=== PATIENT | male | born 1940 | race Caucasian/White ===

== ENCOUNTER 2017-06-06 18:00 | Inpatient (IN) | payer MEDICARE ==
[~2017-06-06] VITALS: Ht 193 cm; Wt 143.3 kg
--- NOTE | ~2017-06-06 | CON ---
PATIENT'S NAME: CARLA LIN [facility] AGE: 76 Y [address] ROOM: [place] [address] [place] [facility] [place] DATE: 06/06/2017 Consultation DISCHARGE DATE: FAMILY PHYSICIAN: Elias Pierce MD ATTENDING PHYSICIAN: MARE SMITH DATE OF CONSULTATION: 06/07/2017 REFERRING PHYSICIAN: Mare Smith MD REASON FOR CONSULT: Lower leg dermatitis. HISTORY OF PRESENT ILLNESS: This is a 76-year-old male patient who was admitted to [facility] with hypoxemia. He has a history of type 2 diabetes mellitus, hypertension, obstructive sleep apnea, COPD, lower leg edema, and diastolic CHF. His current hemoglobin A1c is 9.7%. The patient is a poor historian. Per previous records, the patient has been complaining of epigastric pain associated with diarrhea. In addition, he has suffered from a productive cough with white phlegm. He notes his legs have been swollen for "years." He does wear some type of wraps at home, but currently is not wearing, unable to describe them to me. He does not wear diabetic footwear. He denies lower leg pain. He does not think he has worn Unna boot applications in the past. He denies pain. He admits to shortness of breath. Unable to obtain any other history from the patient. PAST MEDICAL HISTORY: Hypothyroidism, chronic diastolic congestive heart failure, type 2 diabetes mellitus, obstructive sleep apnea, hypertension, adrenal insufficiency, lower leg edema, and BPH. PAST SURGICAL HISTORY: Cholecystectomy, appendectomy, excision of pituitary tumor, cataract surgery, pacemaker placement, right total knee surgery, and pituitary tumor removal. FAMILY MEDICAL HISTORY: Positive for diabetes. SOCIAL HISTORY: The patient lives in [place]. He quit smoking in 1982. He denies alcohol use. ALLERGIES: LATEX AND BANANAS. PATIENT'S NAME: CARLA LIN [facility] AGE: 76 Y [address] ROOM: [place] [address] LOCATION: [facility] [place] ADMIT DATE: 06/06/2017 Consultation DISCHARGE DATE: FAMILY PHYSICIAN: Elias Pierce MD ATTENDING PHYSICIAN: MARE SMITH CURRENT MEDICATIONS: Please refer to the medication administration record. REVIEW OF SYSTEMS: Unable to fully complete. The patient is a very poor historian. He does deny pain. Please see HPI for further details. PHYSICAL EXAMINATION: VITAL SIGNS: Temperature 98.0, pulse 62, respirations 17, blood pressure 147/85, and pulse oximetry 95% on 6 L. Height 6 feet 4 inches and weight 148.6 kg. GENERAL: The patient is alert. He knows he is in [place]. Obviously, short of breath. Obese in nature. HEENT: Head is normocephalic and atraumatic. Very hard of hearing. Oral mucosa dry. NECK: Supple. CARDIOVASCULAR: Deferred. ABDOMEN: Obese, round, and soft. EXTREMITIES: Doppled pedal pulses. +2 pitting edema. Thick mycotic toenails, unable to assess capillary refill. Significant dark hemosiderin staining to lower legs. Heels intact. Extremities are warm to touch. No hair growth noted. SKIN: Significant venous dermatitis and hemosiderin staining with skin flaking to lower legs. Right anterior lower extremity dry scab measures 3.0 cm width x 1.5 cm length. Groin folds red, left worse than right. Satellite lesions noted. The patient refused buttocks visualization. Nursing noted no issues. LABORATORY DATA: Please refer to the patient's chart. ASSESSMENT AND PLAN: Again, this is a 76-year-old male patient who was admitted to [facility] with hypoxia. Wound care consult for lower leg dermatitis. 1. Bilateral lower leg edema secondary to venous insufficiency and diastolic congestive heart failure. Dry scabbing to right anterior lower extremity. The patient is a very poor historian. No family at bedside. No weeping lesions noted. He reports he wears some type of wraps at home. It will be a priority to rule out arterial disease prior to Unna boot applications. This may need to be done on an outpatient basis. For now, we will treat the dermatitis with emollient therapy. I instructed Nursing to apply Aloe [place] b.i.d. to lower legs. Then, Tod wraps will be applied for light compression, on in the morning and off at bedtime. His legs are to be elevated at all times with pillows. He does not seem to understand ankle calf pump muscle exercises. I would be happy to PATIENT'S NAME: CARLA LIN [facility] AGE: 76 Y [address] ROOM: [address] [address] LOCATION: [facility] [place] DATE: 06/06/2017 Consultation DISCHARGE DATE: FAMILY PHYSICIAN: Elias Pierce MD ATTENDING PHYSICIAN: MARE SMITH follow this patient outpatient if needed. 2. Candidiasis groin rash. We will treat with nystatin ointment t.i.d. x10 days. I instructed Nursing to perform meticulous skin care. 3. Pressure ulcer prevention. Nursing is instructed to turn the patient in bed q.2 hours side to side. I would like to thank Dr. Smith for this consult. FARRAH ARSHAD APRN FOR MD LISA ENRIQUE/sbl /[id number] d: 06/09/17 1457 t: 06/15/17 1120, CONSULTATION REPORT
--- NOTE | ~2017-06-06 | OR ---
PATIENT'S NAME: CARLA LIN [facility] AGE: 76 Y [address] ROOM: [place] [address] LOCATION: [facility] [place] ADMIT DATE: 06/06/2017 OR/Procedure Report DISCHARGE DATE: 06/13/2017 FAMILY PHYSICIAN: Elias Pierce MD ATTENDING PHYSICIAN: Sonal Israel SURGEON: Ranjith Bang MD BELLMAN DRIVER: DATE OF PROCEDURE: 06/12/2017 ADDENDUM: The patient did undergo biopsy of a small antral polyp as well as a small transverse colon polyp was removed per cold biopsy forceps. RANJITH BANG MD AM/moddaniela /[id number] d: 07/01/17 2139 t: 07/03/17 0756, OPERATIVE SUMMARY
--- NOTE | ~2017-06-06 | DS ---
PATIENT'S NAME: CARLA LIN [facility] AGE: 76 Y [address] ROOM: [address] [address] LOCATION: [facility] [place] ADMIT DATE: 06/06/2017 Discharge Summary DISCHARGE DATE: 06/13/2017 FAMILY PHYSICIAN: Elias Pierce MD ATTENDING PHYSICIAN: Dudley Ragland FINAL DIAGNOSES: 1. Acute hypoxic respiratory failure. 2. Acute on chronic anemia. 3. Acute encephalopathy. 4. Diastolic congestive heart failure. 5. Venous insufficiency. 6. Essential hypertension. 7. Diabetes mellitus type 2. 8. Acute kidney injury secondary to rhabdomyolysis. 9. Transaminitis. PROCEDURES: EGD and colonoscopy with Dr. Scott. HOSPITAL COURSE: Please see details of admission H and P by Dr. Ragland. Briefly, the patient was admitted secondary to his profound anemia and weakness and encephalopathy. During his workup, he was found to have acute kidney injury secondary to rhabdomyolysis. The patient was aggressively hydrated. He was started on antibiotics with Zosyn and Zyvox to preemptively treat any infections Wound Care was consulted for skin evaluation secondary to an ulceration on the skin. The patient was worked up for sepsis, but not found to be septic by criteria. The patient's blood sugars were covered with sliding scale insulin and mild NovoLog scale. The patient was found to have elevated liver enzymes and many level was added. He was placed on heparin subcutaneous for DVT prophylaxis. I did place a Alvarez on the for accurate I's and O's. Wound evaluated the patient on the and felt that his lower extremity edema was secondary to venous insufficiency. The patient did have some intertrigo rash which was treated with nystatin. The patient had elevated blood glucose. He was started on carb count with meals. Echo was performed on the showed EF at 50% with normal wall motion. Insignificant valvular regurgitation noted. Venous Doppler was performed. Did not show any evidence of DVT or thrombophlebitis. We did heme test stools secondary to his anemia and he was heme positive. His encephalopathy did clear throughout his stay. We worked him aggressively with physical and occupational therapy and strength did significantly improve. On the , we did get a spiral CT scan for his hypoxic respiratory failure. The patient did have a history of adrenal insufficiency and he was started back on his Cortef on the with loading doses of Solu-Cortef. CT with PE protocol was negative. Did show chronic pulmonary hypertension and possible bronchitis. The patient was transferred out of the ICU on the . Further medication PATIENT'S NAME: CARLA LIN [facility] AGE: 76 Y [address] ROOM: [place] [address] LOCATION: [facility] [place] ADMIT DATE: 06/06/2017 Discharge Summary DISCHARGE DATE: 06/13/2017 FAMILY PHYSICIAN: Elias Pierce MD ATTENDING PHYSICIAN: Dudley Ragland optimization occurred with blood pressure adjustment and diabetic med adjustment. We stopped his Zosyn and Zyvox and placed him on Ceftin. GI was consulted on the for his anemia with heme-positive stools. Recommended that he undergo EGD and colonoscopy for further evaluation. EGD and colonoscopy were essentially insignificant. He did have some antral gastritis which could be suspect for blood loss, but no active bleeding was noted. On the , the patient was feeling significantly better and felt that he could safely go home and continue with his current level of care including in-home caregivers and support from his daughter. The patient was discharged in stable condition on 06/13/2017. DIAGNOSTICS: CT scan with PE protocol, was already mentioned. Head CT without contrast shows no evidence of intracranial abnormality. CT scan of the abdomen and pelvis shows irregular liver borders suggesting cirrhosis, spleen enlargement, and dependent atelectasis in the lung bases. Chest x-ray shows no vascular congestion or acute infiltrate. Pacemaker present. LABORATORY DATA: Blood glucose ranged between 92 and 377. ABG on the had a pH of 7.32, pCO2 50, PO2 of 35, HCO3 25.8, CO2 content was 29 base excess -0.9. Saturation was 60% on 6 L. Lactate was 1.1 on the . On admission, sodium was 134, potassium 3.6, chloride 100, bicarb 25, glucose 218, BUN 28, creatinine 1.9, lipase 84, CPK 1383, CK-MB 17.1, troponin less than 0.04, free T4 was 0.8, proBNP was 1872. Sodium trended up to 139 on the day of discharge, potassium was 4.1. Iron was 34, TIBC was 356, percent saturation was 10. CPK trended down to 337. Hemoglobin A1C was 9.7. Ferritin was 79.8, free T4 was 0.8, TSH was 0.898. On admission, white blood cell count was 3.7, hemoglobin 10.3, hematocrit 32.1, platelets 72. Prior to discharge, white blood cell count 4.9, hemoglobin 11, hematocrit 34.2, platelets 93. Myoglobin of the urine was 11. Urine creatinine was 159. Urine urea was 521, random urine sodium was 47. Occult stool was positive x3 samples. Blood cultures were negative x4 samples. DISCHARGE INSTRUCTIONS: The patient is discharged home. He is to follow up with Dr. Pierce in 1 week on 06/25/2017 at 2:30. He will follow up with Dr. Scott in 2 months on 08/12/2017 for EGD. The patient will resume home health through the [facility]. They are to monitor his blood pressure and report them to Dr. Pierce. DIET: Diabetic. ACTIVITY: As tolerated. DISCHARGE MEDICATIONS: 1. Allopurinol 300 mg daily. 2. Aspirin 81 mg daily. PATIENT'S NAME: CARLA LIN [facility] AGE: 76 Y [address] ROOM: [place] [address] LOCATION: [facility] [place] ADMIT DATE: 06/06/2017 Discharge Summary DISCHARGE DATE: 06/13/2017 FAMILY PHYSICIAN: Elias Pierce MD ATTENDING PHYSICIAN: Dudley Ragland 3. Lipitor 40 mg daily. 4. Buspirone 15 mg twice daily. 5. Ceftin 250 mg twice daily with stop date of 06/14/2017. 6. Vitamin D 2000 units daily. 7. Lantus 34 units at bedtime. 8. Glucagon pen as directed. 9. Levothyroxine 200 mcg daily. 10. Lisinopril 40 mg daily. 11. Claritin 10 mg daily. 12. Lopressor 25 mg twice daily. 13. Nystatin ointment applied topically 3 times daily, stop date of 06/16/2017. 14. Protonix 40 mg daily. 15. Florastor 250 mg twice daily. 16. Zoloft 100 mg daily. 17. Spironolactone 12.5 mg daily. 18. Flomax 0.4 mg daily. 19. Tylenol 650 mg every 6 hours as needed. 20. Proventil 2 puffs every 4 hours as needed. 21. Calcium plus D 500 mg twice daily. 22. CPAP as directed. 23. Fish oil 2000 mg daily. 24. Glucose tabs as directed. 25. Hydrocortisone 10 mg at bedtime. 26. Hydrocortisone 15 mg every morning. 27. Metformin 2000 mg daily. We appreciate participating in this patient's care. Thank you very much for the ability to serve him while hospitalized at [facility]. Time spent coordinating details of discharge was 35 minutes of which was spent coordinating with consulting physicians, care management, completion of medication reconciliation, and education to the patient and family on the above-mentioned diagnoses. FELIPE CURIEL FOR FAUSTINO MAYEN MD OLIVE/modl /[id number] d: 06/14/17 1538 t: 07/01/17 1442, DISCHARGE SUMMARY
--- NOTE | ~2017-06-06 | ECHO ---
Transthoracic Echocardiography Report (TTE) Demographics Patient Name CARLA LIN Date of Study 06/07/2017 Patient Number [id number] Visit Number [id number] Date of 1940 Room Number [id number] Accession Number [id number] Gender Male Age 76 year(s) Referring Jhonatan Flores C.O.D. Biller Selwyn Carter RVT Physician MD Kari Rueda MD Physician Interpreting Naomi Bryant Product Architect Physician Supervising Ordering Physician Jhonatan Flores MD, MD/MLP Nurse Stress Merchandise Coordinator Conclusions Contractility Score Summary Normal Left Ventricular contractility was noted. Summary Technically difficult exam. The estimated left ventricular ejection fraction is 50% with normal WM and internal dimension. Moderate concentric left ventricular hypertrophy. Mild biatrial dilatation. Mild mitral annular calcification. Trivial mitral regurgitation by color Doppler. Trivial tricuspid regurgitation by color Doppler. Procedure Type of Study TTE procedure:2D Echocardiogram. Procedure Date Date: 06/07/2017 Start: 02:49 PM Study Location: Inpatient Portable Technical Quality: Adequate visualization Indications:Chest pain. Appropriate Use Criteria: 9 Patient Status: Routine HR: 63 bpm M-Mode/2D Measurements LV Diastolic Dimension: 5.61 cm LV Systolic Dimension: 4.17 cm LV Septum Diastolic: 1.62 cm LV PW Diastolic: 1.83 cm AO Root Dimension: 3.1 cm Cardiac Output: 5.68 l/min LA Dimension: 4.3 cm RV Diastolic Dimension: 2.67 cm LVOT: 2.3 cm LVOT VTI: 21.7 cm LV Stroke volume: 90.11 ml RV Mid: 2.6 cm RV Length: 8.42 cm TAPSE: 2.64 cm TDI-S': 15 cm/s Doppler Measurements AV Peak Velocity: 1.28 m/s MV Peak E-Wave: 0.84 m/s AV Peak Gradient: 6.55 mmHg MV Peak A-Wave: 0.75 m/s AV Mean Gradient: 4 mmHg MV E/A Ratio: 1.11 LVOT Peak Velocity: 0.84 m/s MV P1/2t: 105 msec TR Gradient:16.65 mmHg PV Peak Velocity: 1 m/s Estimated RAP:10 mmHg PV Peak Gradient: 4 mmHg Estimated RVSP: 27 mmHg Estimated PASP: 26.65 mmHg E' Septal Velocity: 0.06 m/s A' Septal Velocity: 0.08 m/s E' Lateral Velocity: 1.05 m/s A' Lateral Velocity: 0.82 m/s Findings Left Ventricle Moderate concentric left ventricular hypertrophy with normal internal dimension,EF and WM. Right Ventricle Normal right ventricle structure and function. Left Atrium Mildly dilated LA. Right Atrium The right atrium is mildly dilated. Mitral Valve Mild mitral annular calcification. Trivial mitral regurgitation by color Doppler. Aortic Valve The aortic valve was not well imaged. Tricuspid Valve Trivial tricuspid regurgitation by color Doppler. Pulmonic Valve Normal pulmonic valve structure and function. Pericardial Effusion No evidence of pericardial effusion. Miscellaneous Visualized portions of the aortic root and ascending aorta appear normal in size. Pleural Effusion No evidence of pleural effusion. Contractility Score LV regional wall motion:(0-Non visualized 1-Normal 2-Hypokinesis 3-Akinesis 4-Dyskinesis 5-Aneurysm) Signature dtt: Annette Salgado dtd: 06/07/17 1449 Physician Self Edit
--- NOTE | ~2017-06-06 | ENPV ---
Vascular Lower Extremities DVT Study Procedure Demographics Patient Name CARLA LIN Date of Study 06/07/2017 Patient Number [id number] Gender Male Date of 1940 Age 76 Visit Number [id number] Height Accession Number [id number] Weight Room Number [id number] BSA BMI Referring Ellyn Rueda MD Interpreting Samuel Armstrong MD Physician Physician Physician Ordering Ellyn Rueda MD Film Printer Physician Producer Director Marina Maurer, RT,RVT,RDCS Conclusions Summary Normal venous duplex examination of the legs bilaterally with normal venous Doppler signals noted throughout. No evidence of thrombophlebitis is noted bilaterally in the deep and superficial veins of the legs. Small calf thrombi cannot be excluded. Procedure Type of Study: Veins:Lower Extremities DVT Study, Venous Duplex Lower Extremity Bilateral. Indications for Study:Bilateral lower extremity edema. Additional Indications:Bilateral cellulitis. Appropriate Use Criteria:9 Patient Status:Routine. Study Location:Inpatient Portable. Technical Quality:Poor visualization due to body habitus. Velocities are measured in cm/s ; Diameters are measured in cm Right Lower Extremities DVT Study Measurements Right 2D and Doppler Measurements + + + + +------+------+ + !Location !Visualized!Compressibility!Thrombosis!Signal!Reflux!Reflux ! ! ! ! ! ! ! !(sec) ! + + + + +------+------+ + !GSV Thigh !Yes !Yes !None !Phasic!No ! ! + + + + +------+------+ + !Common !Yes !Yes !None !Phasic!No ! ! !Femoral ! ! ! ! ! ! ! + + + + +------+------+ + !Prox !Yes !Yes !None !Phasic!No ! ! !Femoral ! ! ! ! ! ! ! + + + + +------+------+ + !Mid Femoral!Yes !Yes !None !Phasic!No ! ! + + + + +------+------+ + !Dist !Yes !Yes !None !Phasic!No ! ! !Femoral ! ! ! ! ! ! ! + + + + +------+------+ + !Popliteal !Yes !Yes !None !Phasic!No ! ! + + + + +------+------+ + !Gastroc !No ! !None !Phasic!No ! ! + + + + +------+------+ + !PTV !Yes !Yes !None !Phasic!No ! ! + + + + +------+------+ + !Peroneal !No ! !None !Phasic!No ! ! + + + + +------+------+ + Left Lower Extremities DVT Study Measurements Left 2D and Doppler Measurements + + + + +------+------+ + !Location !Visualized!Compressibility!Thrombosis!Signal!Reflux!Reflux ! ! ! ! ! ! ! !(sec) ! + + + + +------+------+ + !GSV Thigh !Yes !Yes !None !Phasic!No ! ! + + + + +------+------+ + !Common !Yes !Yes !None !Phasic!No ! ! !Femoral ! ! ! ! ! ! ! + + + + +------+------+ + !Prox !Yes !Yes !None !Phasic!No ! ! !Femoral ! ! ! ! ! ! ! + + + + +------+------+ + !Mid Femoral!Yes !Yes !None !Phasic!No ! ! + + + + +------+------+ + !Dist !Yes !Yes !None !Phasic!No ! ! !Femoral ! ! ! ! ! ! ! + + + + +------+------+ + !Popliteal !Yes !Yes !None !Phasic!No ! ! + + + + +------+------+ + !Gastroc !No ! !None !Phasic!No ! ! + + + + +------+------+ + !PTV !Yes !Yes !None !Phasic!No ! ! + + + + +------+------+ + !Peroneal !No ! !None !Phasic!No ! ! + + + + +------+------+ + Impressions Right Impression No evidence of deep vein thrombosis in the right lower extremity, however, calf veins were not visualized well because of body habitus and cellulitis. Left Impression No evidence of deep vein thrombosis in the left lower extremity, however, calf veins were not visualized well because of body habitus and cellulitis. Signature dtt: BLAIR RAMSEY dtd: 06/07/17 0755 Physician Self Edit
--- NOTE | ~2017-06-06 | ER ---
PATIENT'S NAME: CARLA LIN [facility] AGE: 76 Y [address] ROOM: [place] [address] LOCATION: [facility] ADMIT DATE: 06/06/2017 ER/Outpatient Report DISCHARGE DATE: FAMILY PHYSICIAN: Elias Pierce MD ATTENDING PHYSICIAN: MARE SMITH Time of Arrival: 1800 hours. Time of Evaluation: 1800 hours. CHIEF. COMPLAINT: Not feeling well. HISTORY OF PRESENT ILLNESS: The patient is a 76-year-old male, who presents to the emergency department today with chief complaint of not feeling well. Reports upper abdominal pain. Reports some subjective fevers and chills. Reports some nausea, no vomiting. The patient reports that this pain has been going on for about 2 weeks. He also complains of some numbness in his left hand. He reports the pain is mild in severity. Does report some mild shortness of breath as well. He has a chronic cough, he reports. PAST MEDICAL HISTORY: Panhypopituitarism; diabetes mellitus type 2, insulin dependent; hypertension; sick sinus syndrome; peptic ulcer disease; severe sleep apnea, O2 dependent at night; COPD; BPH; thrombocytopenia; dyslipidemia; and morbid obesity. PAST SURGICAL HISTORY: Right knee, pacemaker placement, transsphenoidal resection of a tumor, appendectomy, and cholecystectomy. SOCIAL HISTORY: The patient is a retired product development worker. Has a distant smoking history, quit 30 years ago. Denies any current alcohol or illicit drug use. ALLERGIES: TO LATEX. MEDICATIONS: Please see list. REVIEW OF SYSTEMS: All systems are reviewed by myself and are negative with the exception of those discussed in the HPI and past medical history. PHYSICAL EXAMINATION: PATIENT'S NAME: CARLA LIN [facility] AGE: 76 Y [address] ROOM: [address] [address] LOCATION: [facility] ADMIT DATE: 06/06/2017 ER/Outpatient Report DISCHARGE DATE: FAMILY PHYSICIAN: Elias Pierce MD ATTENDING PHYSICIAN: MARE SMITH VITAL SIGNS: Weight 144 kg, 114/56, pulse 81, respiratory rate 18, temperature 97.7, oxygen saturation 94% on room air. GENERAL: The patient is a 76-year-old male, who appears older than stated age. He is morbidly obese, in no acute distress. HEENT: Head: Normocephalic, atraumatic. Pupils are equal, round, and reactive to light. NECK: Supple. There is no nuchal rigidity. CARDIOVASCULAR: Regular rate and rhythm. No murmurs, rubs, or gallops. LUNGS: Diminished bilaterally. No wheezes, rales, or rhonchi. ABDOMEN: Soft. Mild midepigastric tenderness to palpation. There is no rebound, rigidity, or guarding. Positive bowel sounds. MUSCULOSKELETAL: The patient moves all 4 extremities. SKIN: Warm and dry. Patient does appear to have chronic venous insufficiency on bilateral lower extremities with some erythema and wounds noted. LABORATORY DATA AND X-RAYS: Venous blood gas 7.32/50/35/26/-0.9. Lactate is 2.8. CBC is unremarkable except for white blood cell count 3.7, hemoglobin 10.3, hematocrit 32.1, platelets 72. PTT is 34, PTT is 14.0, INR is 1.33. CMP: Sodium 134, potassium 3.6, BUN 28, creatinine 1.9, glucose 218, alkaline phosphatase normal, AST is 219, ALT is 124, total bilirubin is 0.8. Chest x-ray shows no acute process. EKG is obtained, interpreted by myself at 1837 hours, shows sinus rhythm with a rate of 68, left axis deviation, QTc 480, otherwise normal interval. No ST elevation, ST depression, or T-wave inversion. Procalcitonin is 8.13. ProBNP is 1872. Lipase is normal. CK is 1383, CK-MB is 17.1, troponin is less than 0.04. Free T4 is 0.8. Urinalysis: Protein 30, blood 250 rbc's and wbc's 2 to 5, epithelials [address] scan of the abdomen and pelvis is obtained. I have discussed results with the radiologist and shows no acute process. IMPRESSION: 1. Acute hypoxic respiratory failure. 2. Acute midepigastric abdominal pain, unclear etiology. 3. Elevated lactate and elevated procalcitonin. 4. Acute renal insufficiency. 5. Lower extremity wound. 6. Initial visit. EMERGENCY DEPARTMENT COURSE: The patient is brought back to the examination room. Seen and evaluated by myself. IV is established. Laboratory analysis and imaging are obtained as described above. The patient is given 1 liter of normal saline IV as well as 2 mg of morphine IV. I have discussed the results with the patient and his PATIENT'S NAME: CARLA LIN [facility] AGE: 76 Y [address] ROOM: [id number] [place], [place] [address] LOCATION: [facility] ADMIT DATE: 06/06/2017 ER/Outpatient Report DISCHARGE DATE: FAMILY PHYSICIAN: Elias Pierce MD ATTENDING PHYSICIAN: MARE SMITH at the bedside. I have recommended admission to the hospital for further evaluation, treatment, and management. I have discussed the case with Dr. Smith. He has seen and evaluated the patient here in the emergency department. He does agree to accept the patient for further evaluation, treatment, and management. DISPOSITION: The patient is admitted under the care Dr. Smith in stable condition. DO CHARLY ALLEN/sbl /[id number] d: 06/07/17 0048 t: 06/07/17 0209, OUTPATIENT REPORT
--- NOTE | ~2017-06-06 | CON ---
PATIENT'S NAME: CARLA LIN [facility] AGE: 76 Y [address] ROOM: [address] [place] [id number] LOCATION: [facility] – [place] ADMIT DATE: 06/06/2017 Consultation DISCHARGE DATE: FAMILY PHYSICIAN: Elias Pierce MD ATTENDING PHYSICIAN: MARE SMITH DATE OF CONSULTATION: 06/11/2017 REFERRING PHYSICIAN: Sonal Israel MD REASON FOR CONSULTATION: Anemia. HISTORY OF PRESENT ILLNESS: This is a very pleasant 76-year-old male, who is a very poor historian. The patient was admitted on 06/06/2017 with acute kidney injury secondary to rhabdomyolysis, encephalopathy, acute hypoxic respiratory failure, and COPD. The patient was found to be anemic with hemoglobins in the 9s to 10s, and we were asked to see in consultation. The patient also was positive for heme test stool, 2/3. Again, the patient is a poor historian as some of the information was gathered through the medical record as well as the patient's daughter. On presentation to the hospital, he was complaining of some mid-epigastric discomfort for approximately 1-2 days prior to admission. He also complained of some right upper quadrant pain, all now relieved. The patient states that his bowel movements have been normal, though they "changed color" to reddish brown. He denies any caroline blood or melena to his knowledge. In questioning regarding previous workup, he does state that he underwent an upper endoscopy and colonoscopy, approximately 3-4 years ago. We did reach out to outlying facilities as well as the patient's family, as there is no record of any scoping being done since 2006. Per the patient's daughter, she does state that he was diagnosed with a severe bleeding ulcer in 1998, though no other recent scopes per her recollection as well. The patient was seen and examined. He denies any acute pain at this time. He does state that he is feeling much better. Denies any chest pain, chest pressure, shortness of breath. He also states that his abdominal pain has resolved. The patient stated his last bowel movement was "normal." He again denies any caroline blood or melena. He does recall taking Aleve at home, "sometimes daily." The patient denies any acute chest pain, chest pressure, shortness of breath, fever, chills, or weight loss. PAST MEDICAL HISTORY: Hypothyroidism, chronic diastolic heart failure, diabetes mellitus type 2, obstructive sleep apnea, status post pacemaker implantation in the past, hypertension, history of bleeding ulcer per the patient's daughter, adrenal insufficiency, status post transsphenoidal tumor removal resulting in PATIENT'S NAME: CARLA LIN [facility] AGE: 76 Y [address] ROOM: [place] [address] LOCATION: [facility] – [place] ADMIT DATE: 06/06/2017 Consultation DISCHARGE DATE: FAMILY PHYSICIAN: Elias Pierce MD ATTENDING PHYSICIAN: MARE SMITH hypothyroidism and adrenal insufficiency. SOCIAL HISTORY: The patient is a former cigarette smoker, quit approximately 30 years ago. He denies any alcohol or illicit drug use. 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 FAMILY HISTORY: The patient cannot recall any gastrointestinal diseases. Per the medical record, it does state that the patient's brother from heart problems in his 50s. ALLERGIES: BANANA, LATEX SENSITIVITY. CURRENT MEDICATIONS: Please refer to the medication administration record. REVIEW OF SYSTEMS: All point review of systems was completed. All were negative except for those identified in the history of present illness. PHYSICAL EXAMINATION: GENERAL: A pleasant 76-year-old gentleman who appears to be in no acute distress. VITAL SIGNS: Temperature 98.2, pulse of 74, respirations of 18, blood pressure 155/80, oxygen saturations 95% on 2 L. SKIN: [place], warm, and dry. No jaundice. HEENT: Head is normocephalic and atraumatic. Pupils are equal, round, and reactive to light. Sclerae are clear. Nonicteric. Oral mucosa is pink and moist. No thyromegaly. NECK: Soft and supple. CARDIOVASCULAR: Regular. Normal S1, S2. RESPIRATORY: Respirations are even and unlabored. LUNGS: Clear to auscultation. ABDOMEN: Soft, round, obese, nontender, nondistended. Bowel sounds positive x4 quadrants. MUSCULOSKELETAL: No muscle weakness or atrophy. EXTREMITIES: 1 to 2+ edema noted. PATIENT'S NAME: CARLA LIN [facility] AGE: 76 Y [address] ROOM: [id number] [place] [address] LOCATION: [facility] – [place] ADMIT DATE: 06/06/2017 Consultation DISCHARGE DATE: FAMILY PHYSICIAN: Elias Pierce MD ATTENDING PHYSICIAN: MARE SMITH NEUROLOGICAL: Grossly nonfocal. LABORATORY DATA AND DIAGNOSTICS: White blood cell count of 3.0, hemoglobin of 10.1, stable from a low of 9.4, hematocrit of 31.9, MCV of 79.8, and platelets of 65. Chemistry panel includes a glucose of 138, BUN of 12, creatinine of 1.0, sodium of 141, potassium of 4.1, chloride of 104, CO2 of 31, albumin of 3.2. Liver function tests have been elevated with admission AST of 219, now 133; ALT was 124, now 149; alkaline phosphatase of 93, total bilirubin has been normal at 0.7, direct bilirubin 0.2, phosphorus of 2.3. Iron studies completed showing a low iron at 34, TIBC is 356, percent saturation is low at 10, ferritin was 79.80. A CT abdomen and pelvis was also completed on 05/27/2017 showing relatively small liver with somewhat irregular margin, appearance could reflect changes of cirrhosis of unclear etiology, spleen enlargement. ASSESSMENT AND PLAN: This is a very pleasant 76-year-old gentleman who was admitted with acute kidney injury, encephalopathy, acute hypoxic respiratory failure, now all resolved. The patient was found to be continually anemic and hemoglobins of 9s to 10s with a positive Heme test as well as a low iron and percent saturation of unclear etiology. In review of medical history as well as attempt to obtain the most recent endoscopies, it appears that the patient does have a history of "bleeding ulcer." No scopes have been found as this should be thoroughly worked up for cause of anemia. At this time, we will go forth with an upper endoscopy and colonoscopy for evaluation of this. We will request for the patient's subcu heparin for deep vein thrombosis prophylaxis to be held prior to the procedure. He will be given Suprep in preparation for the procedure as well. It was also noted low platelet count as well as possible cirrhosis seen on CT abdomen and pelvis on admission. Varices should be ruled out as well as a complete liver workup to be done for a clear cause of the patient's suspected cirrhosis as the patient increases stability. Further recommendations will be given per Dr. Ranjith Bang, as well as over the course of the patient's hospitalization. Thank you for this consult. CATHY GUARDADO APRN FOR RANJITH BANG MD MMF/modl PATIENT'S NAME: CARLA LIN [facility] AGE: 76 Y [address] ROOM: [place] [address] LOCATION: [facility] – [place] ADMIT DATE: 06/06/2017 Consultation DISCHARGE DATE: FAMILY PHYSICIAN: Elias Pierce MD ATTENDING PHYSICIAN: MARE SMITH /[id number] d: 06/11/17 1008 t: 06/15/17 1600, CONSULTATION REPORT
--- NOTE | ~2017-06-06 | HP ---
PATIENT'S NAME: CARLA LIN [facility] AGE: 76 Y [address] ROOM: [id number] [place], [place] [address] LOCATION: [facility] ADMIT DATE: 06/06/2017 History & Physical DISCHARGE DATE: FAMILY PHYSICIAN: Elias Pierce MD ATTENDING PHYSICIAN: MARE SMITH DATE OF SERVICE: CHIEF COMPLAINT: Generalized weakness, epigastric pain, left hand numbness, and a very poor historian. HISTORY OF PRESENT ILLNESS: This is a 76-year-old male, who is a very poor historian. Therefore, the story is obtained directly from the patient's daughter at the bedside. The story is that for roughly 2 days ago, the patient has been complaining of epigastric pain associated with few episodes of diarrhea, but this information of diarrhea is not really clear because the patient sometimes says yes, but sometimes says no. The epigastric pain happened about 2 days ago, but does not have any chest pain. He does complain of some nausea and vomiting, but he cannot really tell me how many times vomited in the last 2 days. He also complained of some left hand numbness about 2 days ago, but right now, has already resolved. He has some occasional productive white phlegm cough, but has not been getting worse and is actually improving. He denies any chills or fever. He cannot really tell me if he has any shortness of breath or not because he is a very poor historian. He says that he feels weak in general in the last few days. His appetite has been very poor in the last few days as well. Because of all these problems, the patient's daughter brought the patient here for evaluation. The patient lives alone at home by himself and is questionable about the compliance of the home medication also. REVIEW OF SYSTEMS: As mentioned in the history of present illness. All other systems were reviewed and were negative except those mentioned in the history of present illness. PAST MEDICAL HISTORY: 1. Hypothyroidism. 2. Chronic diastolic heart failure. 3. Diabetes type 2. 4. Obstructive sleep apnea, on 2 L nasal cannula at bedtime. He refused CPAP due to discomfort. 5. Status post pacemaker implantation in the past. PATIENT'S NAME: CARLA LIN [facility] AGE: 76 Y [address] ROOM: [id number] [place], [place] [address] LOCATION: [facility] ADMIT DATE: 06/06/2017 History & Physical DISCHARGE DATE: FAMILY PHYSICIAN: Elias Pierce MD ATTENDING PHYSICIAN: MARE SMITH 6. Hypertension. 7. Adrenal insufficiency after having a transsphenoidal tumor removal in the past giving hypothyroidism and also adrenal insufficiency. ALLERGIES: LATEX. HOME MEDICATIONS: Currently is being reconciled. SOCIAL HISTORY: The patient was a former cigarette smoker. He quit about 30 years ago. He used to smoke about 2 packs per day for roughly 6 years. He denies any alcohol or any illegal drug use. PAST SURGICAL HISTORY: 1. Cholecystectomy. 2. Appendectomy. 3. Pacemaker implantation. 4. Status post trans-sphenoidal tumor removal in the past. FAMILY HISTORY: The patient does not remember much about his parents, but he did mention that he had a brother, who from heart problem in his 50s. PHYSICAL EXAMINATION: VITAL SIGNS: At the time of my evaluation in the emergency room, temperature was 98, heart rate was 76, respirations were 14, blood pressure was 111/89, and saturation was 96% on 2 L nasal cannula. GENERAL APPEARANCE: Alert and oriented x3. The patient is a very poor historian and very hard of hearing. Currently, in no acute distress. HEENT: Pupils are equally round and reactive to light. Extraocular muscles intact. Anicteric sclerae. Nasal turbinates are normal bilaterally. Dry oral mucosa. NECK: No JVD. CARDIOVASCULAR: Regular rate and rhythm. Normal S1, S2. No murmur, no rubs, no gallops. RESPIRATORY: Clear to auscultation. No rales, no rhonchi, no wheezing, no crackles. ABDOMEN: Soft, obese, nontender, bowel sounds are present, no mass. EXTREMITIES: No edema in upper or lower extremities. He does have erythema in bilateral shins in the anterior portion as well as stage II skin tear ulcer on the right anterior gordillo. There is no purulent drainage. There is no tenderness to palpation. SKIN: Erythema in bilateral shins and also open sore in the right anterior PATIENT'S NAME: CARLA LIN [facility] AGE: 76 Y [address] ROOM: [id number] [place], [place] [address] LOCATION: [facility] ADMIT DATE: 06/06/2017 History & Physical DISCHARGE DATE: FAMILY PHYSICIAN: Elias Pierce MD ATTENDING PHYSICIAN: MARE SMITH. NEUROLOGICAL: Grossly nonfocal. LABORATORY DATA: Venous blood gas show pH of 7.32, pCO2 50, bicarbonate 25.8, lactic acid 2.8, CPK 1383, proBNP 1872, troponin less than 0.04. White blood cells 3.7, hemoglobin 10.3, hematocrit 32.1, and platelets 72. Glucose 218, BUN 28, creatinine 1.9. Sodium 134, potassium 3.6, chloride 100, CO2 25, calcium 7.9. Total protein 6.0, albumin 2.9, AST 219, ALT 124, alkaline phosphatase 96, total bilirubin 0.8, anion gap 12.6, globulin 3.1. INR 1.33, PTT 34. Urinalysis: Negative for UTI. CK-MB 17.4, lipase 84, GFR 34, free T4 0.8. TSH pending, procalcitonin is 8.13. IMAGING STUDY: Chest x-ray on admission was unremarkable. CT abdomen and pelvis without contrast on admission shows relatively small liver with a somewhat irregular margin. The appearance could reflect changes of cirrhosis. Spleen enlargement. Vascular calcification. No free air with no findings of a bowel obstruction, prostate calcification. Dependent atelectasis at the lung bases. Atrophic musculature, particularly the paraspinous muscles. EKG on admission, on June 06, 2017, at 6:28 p.m. show sinus rhythm, heart rate 68. Left axis deviation. Q-waves in the septal leads. Otherwise, unremarkable. ASSESSMENT AND PLAN: 1. Regarding his acute kidney injury, secondary to mild rhabdomyolysis: This is from dehydration from poor oral intake. He has elevation of BUN and creatinine and also elevated CPK. This means he has rhabdomyolysis, which is mild. I will treat him with IV fluids with gentle hydration given that he has a history of a chronic diastolic congestive heart failure. We will be checking the labs and CPK again in the morning. 2. Regarding his transaminitis: This is from the mild rhabdomyolysis. He is already status post cholecystectomy. See acute kidney injury, secondary to mild rhabdomyolysis for other details. 3. Regarding his encephalopathy: Could be from hypothyroidism given that the patient has a history of hypothyroidism. I will be checking a TSH. I will get a CT of the head without contrast for evaluation as well. Currently, the patient is oriented x3. However, he was a little bit confused during my interview. In addition, due to the concern for possible cirrhosis finding on the CT abdomen and pelvis, I will also be getting ammonia level to make sure this is not a hepatic encephalopathy from early PATIENT'S NAME: CARLA LIN [facility] AGE: 76 Y [address] ROOM: [id number] [place], [place] [address] LOCATION: [facility] ADMIT DATE: 06/06/2017 History & Physical DISCHARGE DATE: FAMILY PHYSICIAN: Elias Pierce MD ATTENDING PHYSICIAN: MARE SMITH. 4. Regarding his left hand numbness: Already resolved. This could be from the diabetic peripheral neuropathy. I will check A1c to see how good is his diabetes control. In addition, I will get a CT of the head without contrast right now to see if there is any finding of a stroke. I cannot get MRI of the brain given that he has a pacemaker. Currently, there is no slurred speech. There is no facial droop. There is no pronator drift. 5. Regarding his epigastric pain: Could be from gastroesophageal reflux disease or from diabetic gastroparesis. We will be giving him Protonix and see how he responds. Could try Reglan or erythromycin if necessary. 6. Regarding his generalized weakness: We will get PT/OT. 7. Regarding his bilateral lower extremity erythema and right anterior gordillo wound from open sore: He has a high procalcitonin and also high lactic acid. However, he has an acute kidney injury from dehydration. Given that there is open wound in the right anterior gordillo, I will be giving him with antibiotics for coverage due to the high elevation of procalcitonin. I will be giving him IV linezolid and also IV Zosyn, dosing per pharmacy for treating for cellulitis and also for the ulcer. We will get a Wound Care consult. In addition, I will get a venous duplex ultrasound of the legs to make sure there is no DVT. 8. Regarding his transient hypoxia in the emergency room: The patient has obstructive sleep apnea. He uses 2-3 L of oxygen nasal cannula at night. Given that he is very sedentary, I will be getting a ventilation perfusion scan in the morning to make sure there is no pulmonary embolism. Currently, he is doing well. Denies any shortness of breath. I am not going to give him any heparin or any subcu Lovenox at the moment given that there is always a risk of bleeding. 9. He is DO NOT RESUSCITATE/DO NOT INTUBATE. 10. For deep vein thrombosis prophylaxis, he will be getting subcutaneous heparin. Time spent in care on the day of admission 60 minutes, where 10 minutes was spent on chart review and remaining of time was spent in interview and counseling and the physical examination. The counseling includes going over the plan of care in detail with the patient and the patient's daughter at the bedside and also with the nurse. Further plan will depend on clinical course. I also answered all their questions to their satisfaction. MARE SMITH MD CC/modl PATIENT'S NAME: CARLA LIN [facility] AGE: 76 Y [address] ROOM: [place] [address] LOCATION: [facility] ADMIT DATE: 06/06/2017 History & Physical DISCHARGE DATE: FAMILY PHYSICIAN: Elias Pierce MD ATTENDING PHYSICIAN: MARE SMITH /[id number] D: [id number] T: [id number] HISTORY & PHYSICAL
[~2017-06-06 18:00] MED LIST changes: -CEFTIN500 MG PO; -FLORASTOR250 MG PO; -GLUCOPHAGE XR500 M1 PO; -LANTUS SOL100 UNIT/1 SUB-Q; -TYLENOL325 MG PO; -[UNRECOGNIZED DRUG - OTHER] TOP
[2017-06-06 18:22] LABS: BICARBONATE 25.8 mmol/L (18.0-23.0); LACTATE 2.8 mEq/L (0.50-1.60); PCO2 50 mmHg (35-45)
[2017-06-06 18:23] LABS: PO2 35 mmHg (80-90)
[2017-06-06 18:25] LABS: BASOPHIL % 0.5 %; EOSINOPHIL # 0.1 K/uL (0.0-0.5); EOSINOPHIL % 1.6 %; HEMATOCRIT 32.1 % (37.0-53.0); HEMOGLOBIN 10.3 g/dL (11.0-16.0); IMMATURE GRANULOCYTE % 0.8 %; LYMPHOCYTE # 0.6 K/uL (0.8-4.0); LYMPHOCYTE % 15.1 %; MCH 25.8 pg (27.0-34.0); MCHC 32.1 gm/dL (32.0-36.5); MCV 80.5 fl (83.0-98.0); MONOCYTE # 0.3 K/uL (0.0-1.0); MONOCYTE % 9.2 %; MPV 10.5 fl (9.4-12.4); NEUTROPHIL # (ANC) 2.7 K/uL (1.4-9.0); NEUTROPHIL % 72.8 %; NRBC % 0 /100WBC (0-0.00); PLATELET COUNT 72 K/uL (150-450); RBC 3.99 M/uL (3.50-5.50); RDW-CV 16.1 % (11.9-14.6); WBC 3.7 K/uL (4.0-11.0)
[2017-06-06 18:31] LABS: INR - (THERAPEUTIC) 1.33 (0.92-1.07); PTT 34 SECONDS (25-32)
[2017-06-06 18:45] LABS: ALBUMIN 2.9 gm/dL (3.5-5.0); ALK PHOS 96 IU/L (33-138); ALT 124 IU/L (12-78); ANION GAP 12.6 (10.0-19.0); AST 219 IU/L (10-40); BLOOD UREA NITROGEN 28 mg/dL (6-24); CALCIUM 7.9 mg/dL (8.5-10.5); CHLORIDE 100 mMol/L (96-110); CO2 25 mMol/L (22-32); CREATININE 1.9 mg/dL (0.6-1.3); POTASSIUM 3.6 mMol/L (3.7-5.1); SODIUM 134 mMol/L (135-145); TOTAL BILIRUBIN 0.8 mg/dL (0.0-1.5)
[2017-06-06 18:55] LABS: CPK 1383 IU/L (35-332)
[2017-06-06 19:05] LABS: BILIRUBIN URINE NEGATIVE (NEGATIVE); BLOOD URINE 250 /UL (NEGATIVE); COLOR URINE YELLOW (YELLOW); GLUCOSE URINE NEGATIVE (NEGATIVE); KETONE URINE NEGATIVE (NEGATIVE); LEUKOCYTES URINE NEGATIVE /UL (NEGATIVE); NITRITE URINE NEGATIVE (NEGATIVE); PROTEIN URINE 30 mg/dL (NEGATIVE); SPEC GRAVITY URINE 1.015 (1.003-1.035); UROBILINOGEN URINE NORMAL (NORMAL)
[2017-06-06 19:07] LABS: TURBIDITY URINE 1+ (CLEAR)
[2017-06-06 19:15] LABS: AMORPHOUS URINE 1+ (NEGATIVE); BACTERIA URINE RARE (NEGATIVE)
--- NOTE | 2017-06-07 05:03 | NUR ---
PT ADMITTED UNDER THE CARE DR SMITH FOR HYPOXIA AND MILD RHADOMYLOSIS. PT O2 AT 4 LITERS/NC. PT HAS PACEMAKER. CT OF HEAD DONE. BLOOD & URINE CULTURES SENT. PT ORIENTED BUT VENETIE IRA. FIELD PLACED. REDNESS TO GROINS, DISCOLORATION/SCALINESS TO THE LOWER EXTREMITIES WITH OPEN BLISTER TO RIGHT HICKS. PT UP WITH 2 HEAVY ASSIST. PT HAS CHRONIC BACK PAIN, TREATED WITH MORPHINE.BATH DONE.
[2017-06-07 08:36] LABS: HEMATOCRIT 30.5 % (37.0-53.0); HEMOGLOBIN 9.5 g/dL (11.0-16.0); MCH 24.9 pg (27.0-34.0); MCHC 31.1 gm/dL (32.0-36.5); MCV 79.8 fl (83.0-98.0); MPV 10.5 fl (9.4-12.4); RBC 3.82 M/uL (3.50-5.50); WBC 3.4 K/uL (4.0-11.0)
[2017-06-07 08:55] LABS: ALBUMIN 3.1 gm/dL (3.5-5.0); ANION GAP 11.7 (10.0-19.0); CALCIUM 7.8 mg/dL (8.5-10.5); CREATININE 1.4 mg/dL (0.6-1.3); POTASSIUM 4.7 mMol/L (3.7-5.1); TOTAL PROTEIN 6.3 g/dL (6.0-8.4)
[2017-06-07 08:57] LABS: TOTAL BILIRUBIN 0.6 mg/dL (0.0-1.5)
[2017-06-07] MEDS ORDERED: TYLENOL325 MG PO (16:05)
[2017-06-07] MEDS ORDERED: GLUCOPHAGE XR500 M1 PO (16:22)
--- NOTE | 2017-06-07 16:22 | NUR ---
A&O X3. 1PA. SBP 140'S-150'S. HR 60'S. 4-6L02 NC. AFEBRILE. LS CLEAR/DIM VQ SCAN TODAY. ECHO TODAY. NO C/O PAIN. DELFIN DIET BS ACTIVE. VD PER EMIR. R AC NS @ 100 INT ATBX R HAND SL. CONT PLAN OF CARE, BACK TO MELI QUARLES READY
[2017-06-07] MEDS ORDERED: LANTUS SOL100 UNIT/1 SUB-Q (16:23)
[2017-06-07 16:33] LABS: ALBUMIN 3.2 gm/dL (3.5-5.0); ANION GAP 11.2 (10.0-19.0); CALCIUM 7.7 mg/dL (8.5-10.5); CREATININE 1.2 mg/dL (0.6-1.3); MAGNESIUM 1.7 mg/dL (1.8-2.6); PHOSPHORUS 2.6 mg/dL (2.5-4.9); POTASSIUM 5.2 mMol/L (3.7-5.1)
[2017-06-08 05:06] LABS: HEMOGLOBIN 9.4 g/dL (11.0-16.0); MCH 24.9 pg (27.0-34.0); MCHC 31.3 gm/dL (32.0-36.5); MCV 79.4 fl (83.0-98.0); MPV 10.8 fl (9.4-12.4); PLATELET COUNT 70 K/uL (150-450); RBC 3.78 M/uL (3.50-5.50); WBC 3.9 K/uL (4.0-11.0)
[2017-06-08 05:24] LABS: INR - (THERAPEUTIC) 1.14 (0.92-1.07)
[2017-06-08 05:30] LABS: ANION GAP 10.2 (10.0-19.0); CALCIUM 8.3 mg/dL (8.5-10.5); CREATININE 1.2 mg/dL (0.6-1.3); MAGNESIUM 1.8 mg/dL (1.8-2.6); POTASSIUM 4.2 mMol/L (3.7-5.1); TOTAL BILIRUBIN 0.7 mg/dL (0.0-1.5); TOTAL PROTEIN 6.4 g/dL (6.0-8.4)
--- NOTE | 2017-06-08 05:30 | NUR ---
Significant Event: Patient alert/oriented x 3. Denies n/t/pain this shift. Follows commands. 5 L of 02 this shift. Bm yesterday. Alvarez intact. Ambulates 1 Assist GB/walker. WOC instructions for BETH wrap to be applied to lower extremities during the day. PIV to right AC running NS at 100 ml/hr. Follow up:
[2017-06-08 05:32] LABS: PHOSPHORUS 1.8 mg/dL (2.5-4.9)
[2017-06-08 07:00] LABS: ABSOLUTE NEUTROPHIL CT (ANC) 3.6 K/uL (1.4-9.0); BANDED NEUTROPHIL # 0.3 K/uL (0.0-0.1); BANDED NEUTROPHILS % 8 %; LYMPHOCYTE # 0.3 K/uL (0.8-4.0); LYMPHOCYTE % 7 %; SEGMENTED NEUTROPHIL # 3.2 K/uL (1.4-9.0); SEGMENTED NEUTROPHIL % 83 %
--- NOTE | 2017-06-08 14:10 | NUR ---
Significant Event: PT ALERT AND ORIENTED X3. VERY HARD OF HEARING. TRANSFERS WITH 1-ASSIST/GAIT BELT/WALKER. HAS BEEN UP IN THE CHAIR SINCE MID-MORNING. PT HAS A PACEMAKER. HYPERTENSIVE; ORDER TO KEEP SBP LESS THAN OR EQUAL TO 165. PRN IV LABETOLOL AND HYDRALAZINE GIVEN THIS SHIFT. O2 WEANED TO 2 LITERS PER NASAL CANNULA TO KEEP SATS GREATER THAN OR EQUAL TO 90%. FIELD PATENT, DRAINING YELLOW URINE. GROIN REDDENED; SCHEDULED CREAM APPLIED. VENOUS STAINING TO BILATERAL LOWER LEGS. IV TO R)AC INTACT; NEW IV STARTED TO L)FA. INTERMITTENT ANTIBIOTICS. IV K-PHOS CURRENTLY INFUSING X6 HOURS. CT CHEST WITH IV CONTRAST ORDERED; GFR WAS 59 THIS AM. FLUID BOLUS TO BE GIVEN PER CT PROTOCOL; IV NS RUNNING AT 148 ML HR X6 HOURS. DENIES ANY PAIN. AMBULATED IN THE BAXTER WITH PHYSICAL THERAPY THIS AM. AC/HS ACCUCHECKS WITH MILD SLIDING SCALE, PLUS CARB COUNT. BAG BATH GIVEN THIS AM. Follow up: NEED HEMATEST X3 AND CHECK LOOSE STOOLS FOR C-DIFF; NO BM THIS SHIFT.
[2017-06-08 17:33] LABS: ANION GAP 12.3 (10.0-19.0); CALCIUM 8.2 mg/dL (8.5-10.5); CREATININE 1.1 mg/dL (0.6-1.3); MAGNESIUM 1.9 mg/dL (1.8-2.6); POTASSIUM 4.3 mMol/L (3.7-5.1)
--- NOTE | 2017-06-08 19:57 | NUR ---
Patient is alert and oriented x 3. [place]. Up with 1 assist, walker, and gaitbelt. VSS on 2L of O2. Right AC IV, saline locked. Left forearm IV with NS running at 148 ml/hr, to be turned off at 1930. Receiving intermittent IV antibiotic. ACHS accucheck on mild sliding scale with carb count. Denies any pain. Alvarez was removed on day shift at 1750. Patient is pleasant and cooperative with cares. Patient was tranferred from ICT to MSU at 1930.
[2017-06-09 04:42] LABS: HEMATOCRIT 30.8 % (37.0-53.0); HEMOGLOBIN 9.7 g/dL (11.0-16.0); MCH 25.3 pg (27.0-34.0); MCHC 31.5 gm/dL (32.0-36.5); MCV 80.4 fl (83.0-98.0); MPV 9.5 fl (9.4-12.4); PLATELET COUNT 65 K/uL (150-450); RBC 3.83 M/uL (3.50-5.50); RDW-CV 16.4 % (11.9-14.6); WBC 3.5 K/uL (4.0-11.0)
--- NOTE | 2017-06-09 04:42 | NUR ---
Significant Event:Patient transferred from PCU at 1930. History of Pacer, CHF, COPD, diabetes and Pituary tumors x 2. Was admitted for hypoxia. Alvarez was removed at 1730 last night and patient has voided well since. Up with one assist, gait belt and walker. Alert and orientated. Accucheck AC/HS. On oxgen at 3 liters. Follow up: Continue to monitor.
[2017-06-09 04:54] LABS: ALBUMIN 3.2 gm/dL (3.5-5.0); ANION GAP 10.5 (10.0-19.0); CALCIUM 8.5 mg/dL (8.5-10.5); PHOSPHORUS 2.3 mg/dL (2.5-4.9); POTASSIUM 4.5 mMol/L (3.7-5.1)
[2017-06-09 05:41] LABS: ABSOLUTE NEUTROPHIL CT (ANC) 3.1 K/uL (1.4-9.0); BANDED NEUTROPHIL # 0.3 K/uL (0.0-0.1); BANDED NEUTROPHILS % 9 %; LYMPHOCYTE # 0.2 K/uL (0.8-4.0); LYMPHOCYTE % 5 %; MONOCYTE # 0.2 K/uL (0.0-1.0); SEGMENTED NEUTROPHIL # 2.8 K/uL (1.4-9.0); SEGMENTED NEUTROPHIL % 79 %
--- NOTE | 2017-06-09 15:33 | NUR ---
D: Patient vital signs stable patient afebrile. Patient up in ortiz with PT but very tired after walking. Patient accucheck this am 227 (10 units correction/carb count) before lunch 284 (12 units correction/carb count). Patient had 1350 out per urinal. Patient lung sounds sl coarse with I/E wheezes this am and clear and diminished this afternoon. Patient remains on Zosyn IV.
--- NOTE | 2017-06-10 04:29 | NUR ---
Significant Event: Patient plesant and cooperative with care, [place]. Up to bathroom and had a large loose stool but was not able to get a sample. Need hemetest X 3 and C-Diff sample if having loose stools. Lungs sound clear and diminished, Titrated to 2 liters of 02. Tele with no calls. Follow up: Continue to monitor.
--- NOTE | 2017-06-10 13:23 | NUR ---
Met with patient and introduced myself to him. Explained my role with the CM department. Patient states he lives at [facility] and has been there for 9 years. He has all of his noon meals brought in to him Saturday-Saturday. He has microwavable dinners for his suppers. He has home health come in an set up his medications once a week. [facility]. He says they check his vitals and labs. His daughter Josefina works for the [employer] and she comes in every weekend and cleans for him and takes care of laundry. He says he has three other daughters all in [facility]. He states he manages well at home and feels like he has a lot of help in the home. He uses a walker at home. He does not feel that he needs a fpc at this time. I placed a call to his daughter Josefina and left her a message asking her to call me. Will wait to hear back from her. Will continue to follow and offer supports.
--- NOTE | 2017-06-10 15:50 | NUR ---
Significant Event:Is A/O.Pretty BISHOP [place].PLeasant.Has SL in Lt.forearm & Rt.anticubital.Has O2 on at 2L/NC.Venous staining & some edema in lower extremities.Had Tylenol 650mg for headache which did help.Is up with walker & 1 assist--does well.Is a DNR. Follow up:
--- NOTE | 2017-06-11 05:22 | NUR ---
Significant Event: PATIENT IS ALERT AND ORIENTED X3 VSS ON RA. TELE IV ANTIUBITAL R SL AND L FA SL. 1 ASSIST WALKER. LIKE SITTING IN [place]IR WATCHING TV. VENOUS STAINING AND EDEMA IN LOWER ETREMITIES. AMBULATES WITH WALKER GB AND ONE/TWO ASSIST. ADA AND CARB COUNT. Follow up:
[2017-06-11 05:36] LABS: BASOPHIL % 0.7 %; EOSINOPHIL # 0.1 K/uL (0.0-0.5); EOSINOPHIL % 2.7 %; HEMATOCRIT 31.9 % (37.0-53.0); HEMOGLOBIN 10.1 g/dL (11.0-16.0); IMMATURE GRANULOCYTE # 0.1 K/uL (0.0-0.3); IMMATURE GRANULOCYTE % 2.4 %; LYMPHOCYTE # 0.6 K/uL (0.8-4.0); LYMPHOCYTE % 21.2 %; MCH 25.3 pg (27.0-34.0); MCHC 31.7 gm/dL (32.0-36.5); MCV 79.8 fl (83.0-98.0); MONOCYTE # 0.2 K/uL (0.0-1.0); MONOCYTE % 7.4 %; MPV 9.3 fl (9.4-12.4); NEUTROPHIL % 65.6 %; NRBC % 0 /100WBC (0-0.00); PLATELET COUNT 65 K/uL (150-450); RDW-CV 16.4 % (11.9-14.6)
[2017-06-11 05:51] LABS: ANION GAP 10.1 (10.0-19.0); POTASSIUM 4.1 mMol/L (3.7-5.1)
--- NOTE | 2017-06-11 10:00 | NUR ---
0987 Phone call placed to daughter Josefina- no answer- 1000 phone call placed to daughter Meredith- left her a voicemail asking her to call me regarding patient. 1030 attended morning huddle and patient will have an EGD tomorrow. Will wait to hear from one of his daughters and continue to follow.
--- NOTE | 2017-06-11 12:18 | NUR ---
[facility]abetes [facility] note: On 06/10/17 at 1100, CDE talked to patient briefly and provided the Diabetes Management booklet and asked patient to start working to complete the Diabetes Survival Skills checklist. Patient lives alone, but patient states he has good family support from daughters who live close by and his medical care provider is at [facility] in [place], [place]. He also has Home Health Nurses that assist with setting up his medications. As per Med Recon, patient had been on NPH 30 units every a.m. and 4 units at HS and Glucotrol 5 mg. A1C 9.7 % 06/06/17. Since admission to hospital his insulin regimen has been changed to Levemir 30 units and Novolog carb counting now at meals, plus a mild sliding scale. Will continue to follow through hospital stay to assess educational needs. 06/11/17 1130 Education provided to patient, he had started completing the Diabetes Survival Skills Checklist. CDE assists in completing the form and education provided. Patient is very hard of hearing. CDE explained that A1C on admission was 9.7 % and explained rational for obtaining better blood sugar control to reduce risks of further complications related to eyes, kidneys, heart and nerves. Reviewed armstrong topics on Assessment form and CDE explained that there has been a change in his insulin regimen since he was admitted to the hospital and anticipate that he will need to continue this new regimen including Levemir 34 units and Novolog at home. Overall blood sugars have improved in the past 2 days, with FBS on 06/10/17 149 and FBS on 06/11/17 121 Patient has been giving himself insulin injection of NPH insulin at home prior to hospital stay, but based on my assessment today, it is evident that patient will probably not be able to accurately count carbs by myself and dose Novolog as per carb count prior to meals. As we discussed this, patient states that maybe his daughter who lives close by could assist with this. Patient states he will check with his daughter, care management is having difficulty getting in touch with daughter, messages left, will have to continue attempting to reach them. Another option would be to have patient administer Levemir and instead of carb counting at meals, a set dose of Novolog might have to be considered, if daughter is not able to be there at meal times. Patient is starting prep for colonoscopy and EGD on 06/12/17, so we will have some time prior to dismissal to further educate and finalize plans with insulin regimen. Will continue to follow.
--- NOTE | 2017-06-11 13:12 | NUR ---
Phone call from patient's daughter Josefina. Explained to her that I am the Pumper Hand following her dad while he is here. She confirms that patient has different supports coming into the home. She states that he goes to the [employer] for lunch and if he is not feeling well they bring his lunch to his apartment. She also said that [facility] and checks his labs and vitals and then once a week they set up his meds for him. Josefina does not have any concerns with him being able to return home at discharge. She did state that he is not taking care of his hygeine as she would like so she is going to have him shower/bath every time she goes over to do his cleaning and laundry. She said they put him on the waitlist for the new [place] home once it is completed here in [place], but she was told there is a 2 year waitlist. He is to have the EGD tomorrow. Will continue to follow and assist with discharge planning.
--- NOTE | 2017-06-11 13:20 | NUR ---
PT SCREENED D/T LOS. EST NEEDS: [id number] KCALS, 91-137 GM PROTEIN, 1 ML/KCAL FLUIDS. INTAKE 75-100% ON DIABETIC DIET. BMI IN OBESE RANGE. NO NUTRITION-RELATED DIAGNOSIS IDENTIFIED. WILL F/U IN 7-10 DAYS.
--- NOTE | 2017-06-11 17:56 | NUR ---
AAOx3. Cooperative with cares. Very [place]. Up w/SBA, GB, walker. Tolerating clear liquid diet. NPO @[address] in Endo. No red or purples tonight. Bowel prep started @1800, then 0300. IV s/l'd LFA. No PRN meds given. On RA. BETH wraps to bilat LEs on in day, off at NOC. DNR.
--- NOTE | 2017-06-12 04:49 | NUR ---
Pt. alert and oriented. VSS - hypertensive at times - No PRN HTN meds given this shift. RA - 2L at [facility]. IV in L) arm - saline locked. IQUGMIUT. 1 assist with walker. BETH wrapped on during day and removed at [facility]. Venous staining. Tele - no calls. Clear liquid diet - NPO at 0500 for EGD and colonscopy. Bowel prep. Possibly may need enema before procedure. Consents not signed. Cooperative and pleasant with cares.
--- NOTE | 2017-06-12 09:29 | NUR ---
Diabetes Consult: Patient's blood sugars well controlled yesterday ranging from 121-181. The patient is on and insulin to carb count, however may be best suited to be placed an a standard prandial dose at dismissal. Yesterday Novolog carb coverage ranged from 7 to 12 units of insulin with meals. May need to consider a set dose of 8 units with meals.
--- NOTE | 2017-06-12 15:35 | NUR ---
Phone call from FELIPE Cui regarding sending shine home tomorrow with resuming home health care, but adding therapies. SW Deckhand Oyster Dredge Danisha took Face to Face to the floor and placed it on patient's chart. I arrived on the floor a short time later and spoke to Dr. Israel about adding therapies. She will complete the Face to Face. I placed a call to Speedy with [facility] and informed her that we will be discharging patient home with home health care and adding therapies to that care. Left her a voice mail. Will fax discharge papers to Speedy tomorrow. Will also contact [facility]Jsh [facility] tomorrow at [phone] and notify her of patient's needs.
--- NOTE | 2017-06-12 17:08 | NUR ---
AAO X3. DNR CABAZON. TRANSFERS WITH SBA. ENDOSCOPY AND COLONOSCOPY WITH BIOPSIES TAKEN TODAY. LIQUID DIET ADA. HAS TOLERATED LIQUIDS WELL. HYPERTENSIVE TODAY GAVE PRN APRESOLINE X2 FOR SYSTOLIC >165. URINAL AT BEDSIDE. IV TO RIGHT POSTERIOR ARM INSERTED IN ENDO FLUSHES WELL WITH NO BLOOD RETURN.
--- NOTE | 2017-06-13 04:29 | NUR ---
Pt. alert and oriented. [place]. VSS - hypertensive at times. No PRN BP given this shift. Wears 2L O2 at NOC. Slept well through night. IV in R) arm - saline locked. EGD and colonscopy done yesterday - results normal - biopsies taken. 1 assist with walker. Uses urinal. Voiding/drinking well. ADA diet. Accuchecks ACHS. 2 units given at HS with Levimir. Tele - no calls. Possible discharge to home today. Cooperative and pleasant with cares.
[2017-06-13 05:41] LABS: BASOPHIL % 0.8 %; EOSINOPHIL # 0.1 K/uL (0.0-0.5); EOSINOPHIL % 1.6 %; HEMATOCRIT 34.2 % (37.0-53.0); IMMATURE GRANULOCYTE # 0.1 K/uL (0.0-0.3); IMMATURE GRANULOCYTE % 2.7 %; LYMPHOCYTE # 0.8 K/uL (0.8-4.0); LYMPHOCYTE % 15.8 %; MCH 25.5 pg (27.0-34.0); MCHC 32.2 gm/dL (32.0-36.5); MCV 79.2 fl (83.0-98.0); MONOCYTE # 0.3 K/uL (0.0-1.0); MONOCYTE % 6.2 %; MPV 9.4 fl (9.4-12.4); NEUTROPHIL # (ANC) 3.6 K/uL (1.4-9.0); NEUTROPHIL % 72.9 %; NRBC % 0 /100WBC (0-0.00); PLATELET COUNT 93 K/uL (150-450); RBC 4.32 M/uL (3.50-5.50); RDW-CV 16.4 % (11.9-14.6); WBC 4.9 K/uL (4.0-11.0)
[2017-06-13 05:58] LABS: ALBUMIN 3.4 gm/dL (3.5-5.0); ANION GAP 11.1 (10.0-19.0); CALCIUM 9.2 mg/dL (8.5-10.5); CREATININE 1.1 mg/dL (0.6-1.3); MAGNESIUM 1.8 mg/dL (1.8-2.6); POTASSIUM 4.1 mMol/L (3.7-5.1)
--- NOTE | 2017-06-13 13:50 | NUR ---
0815 phone call to Speedy at [facility] informing her that patient will discharge today resuming his home health care services, but we will be adding therapies and custodial. Per Speedy, leave the patient's information in the office and Char will pick it up later today. I also called Josh at the [facility] [phone] to notify her that patient will be discharging today and we will be recommending home health care with therapies. Josh is on vacation so I spoke to Paula at the [facility]- I faxed her patient's discharge information and meds at [phone]. I met with patient at 0915 and reviewed the IMM with him again making certain he understands his rights under Medicare. He will contact his daughter Josefina and plan on her picking him up at discharge. No other needs at this time.
[2017-06-13] MEDS ORDERED: CEFTIN500 MG PO (14:36)
[2017-06-13] MEDS ORDERED: [UNRECOGNIZED DRUG - OTHER] TOP (14:43)
[2017-06-13] MEDS ORDERED: FLORASTOR250 MG PO (14:46)
--- NOTE | 2017-06-13 15:28 | NUR ---
D:Orders received for patient to be dismissed. I:Dismissal instructions were prepared and reviewed with the patient by the virtual nurse using the computer technology. The following information was reviewed with the patient and his family: diet and activity recommendations for home, new prescription medications/home medications, plans for home health to follow the patient/monitor BP's to report to Dr. Pierce, abnormal s/s to monitor for and to report to MD if they occur, and plans for follow up with Dr. Pierce and Dr. Scott. Explained to patient that he would have a repeat EGD in 3 months. Jonathon teaching given to and reviewed with the patient on the following topics: Ceftin, Nystatin, Florastor, and Preventing Deep Vein Thrombosis. R:The patient and his family verbalized understanding of above teaching and denied further questions at this point in time. P:The patient's primary nurse, Glendy, was informed that the dismissal teaching had been completed. She was going to take the paperwork in for the patient to have and sign. The patient will be dismissed shortly. Kimberlee CEDILLO
--- NOTE | 2017-06-13 16:43 | NUR ---
PT DISCHARGE INSTRUCTIONS GIVEN BY VIRTUAL NURSE AND PT AND FAMILY VERBALIZED UNDERSTANDING OF. IV AND TELEMETRY D/C'D. DRESSED AND 94% 0N ROOM AIR. DENIES PAIN. A/O AND COOPERATIVE. DISCHARGED PER WHEELCHAIR BY NURSE TO FRONT DOOR.
== END 2017-06-13 15:50 | disposition home health service (06) | DRG 557 ==
LOC: GMED 18:00 → GMSU 21:23 → GICU 21:23 → GMSU 21:23
PROVIDERS: Emergency Medicine; Internal Medicine; Physician Assistant; ADMIT Internal Medicine
PROC: 0DJD8ZZ Inspection of Lower Intestinal Tract, Via Natural or Artificial Opening Endoscopic (ICD-10-PCS; principal; 2017-06-12)
PROC: 0DB68ZX Excision of Stomach, Via Natural or Artificial Opening Endoscopic, Diagnostic (ICD-10-PCS; principal; 2017-06-12)
DX: M62.82 Rhabdomyolysis (principal); G93.41 Metabolic encephalopathy; J96.01 Acute respiratory failure with hypoxia; N17.9 Acute kidney failure, unspecified; D61.818 Other pancytopenia; R16.1 Splenomegaly, not elsewhere classified; I50.32 Chronic diastolic (congestive) heart failure; E27.40 Unspecified adrenocortical insufficiency; L97.819 Non-pressure chronic ulcer of other part of right lower leg with unspecified severity; L03.116 Cellulitis of left lower limb; L03.115 Cellulitis of right lower limb; I11.0 Hypertensive heart disease with heart failure; E11.42 Type 2 diabetes mellitus with diabetic polyneuropathy; I27.2 Other secondary pulmonary hypertension; I87.2 Venous insufficiency (chronic) (peripheral); R74.0 Nonspecific elevation of levels of transaminase and lactic acid dehydrogenase [LDH]; L30.4 Erythema intertrigo; E86.0 Dehydration; Z66 Do not resuscitate; J40 Bronchitis, not specified as acute or chronic; K29.50 Unspecified chronic gastritis without bleeding; K74.60 Unspecified cirrhosis of liver; Z95.0 Presence of cardiac pacemaker; G47.33 Obstructive sleep apnea (adult) (pediatric); E03.9 Hypothyroidism, unspecified; Z87.891 Personal history of nicotine dependence; Z91.040 Latex allergy status; H91.90 Unspecified hearing loss, unspecified ear; J44.9 Chronic obstructive pulmonary disease, unspecified; Z96.651 Presence of right artificial knee joint; B37.2 Candidiasis of skin and nail; D50.9 Iron deficiency anemia, unspecified; K64.4 Residual hemorrhoidal skin tags; K31.7 Polyp of stomach and duodenum; N40.0 Benign prostatic hyperplasia without lower urinary tract symptoms; E11.65 Type 2 diabetes mellitus with hyperglycemia; Z79.82 Long term (current) use of aspirin; Z79.4 Long term (current) use of insulin; Z79.899 Other long term (current) drug therapy; E66.9 Obesity, unspecified; Z68.39 Body mass index [BMI] 39.0-39.9, adult
CPT/HCPCS: A9539; A9540; J0360; J1644; J1720; J1940; J2001; J2020; J2270; J2405; J2543; J7030; J7040; J7050; P9047; Q9967

== ENCOUNTER → 2017-06-06 | Outpatient (CLI) | payer MEDICARE ==
[~2017-06-06] MED LIST: ALDACTONE25 MG PO; ASPIRIN (CHILDR81 MG PO; BUSPIRONE HCL15 MG PO; CEFTIN500 MG PO; CLARITIN10 M3 PO; CORTEF5 MG PO; CPAP; DELTASONE2.5 MG PO; DEXTROSE 50%50 ML IVP; FISH OIL 1,0001 EACH PO; FLOMAX0.4 MG PO; FLORASTOR250 MG PO; GLUCAGON 1 MG PE1 MG SUB-Q; GLUCOPHAGE XR500 M1 PO; GLUCOSE4 GM PO; GLUCOTROL5 MG PO; LANTUS SOL100 UNIT/1 SUB-Q; LASIX20 M1 PO; LEVOTHROID (S200 MCG PO; LIDOCAINE 1% MD20 M1 IDER; LIPITOR40 MG PO; LOPRESSOR50 MG PO; LOVENOX40 MG/0.4 SUB-Q; NORCO 7.5-3251 EACH PO; NOVOLIN-N100 UNIT/M SUB-Q; NOVOLOG100 UNIT/M SUB-Q; OSCAL + D500 MG PO; OXYGEN; PROTONIX40 MG PO; PROVENTIL OR V6.7 GM INH; TYLENOL325 MG PO; VITAMIN D2000 UNI1 PO; ZESTRIL40 MG PO; ZOLOFT100 M1 PO; ZYLOPRIM300 MG PO; [UNRECOGNIZED DRUG - OTHER]; [UNRECOGNIZED DRUG - OTHER] TOP
== END | disposition disaster alternative care site (69) ==
LOC: GAMB 17:42
DX: R10.84 Generalized abdominal pain (principal); E11.9 Type 2 diabetes mellitus without complications; I10 Essential (primary) hypertension; R10.11 Right upper quadrant pain; R10.12 Left upper quadrant pain; R11.10 Vomiting, unspecified; Z79.84 Long term (current) use of oral hypoglycemic drugs; Z79.52 Long term (current) use of systemic steroids; Z79.82 Long term (current) use of aspirin; Z79.4 Long term (current) use of insulin; Z79.899 Other long term (current) drug therapy
CPT/HCPCS: A0425; A0429